=== PATIENT | male | born 1960 | race Caucasian/White ===

== ENCOUNTER 2016-11-06 08:38 | Emergency (ER) | payer BC ==
--- NOTE | 2016-11-06 09:28 | ER NURSING DOCUMENTATION ---
Nurse's Notes [facility] Name:Mega Stafford Age:56 yrs Sex:Male :1960 Arrival Date:11/06/2016 Time:08:38 Bed5 Private MD:Roger Gonsalez Diagnosis:Mouth Abscess Presentation: 11/06 08:40 Presenting complaint: Patient states: pt states he has had a sore in his moth for 10 st days and then last night started to have a fever and some highhandedness. Transition of care: Home. 08:40 Method Of Arrival: Private Vehicle st 08:53 Acuity: ELIN 3 st Triage Assessment: 08:40 General: Appears in no apparent distress, Behavior is cooperative. Pain: Complains of st pain in lower left third molar Pain currently is 7 out of 10 on a pain scale. Pain began 10 days. EENT: sore in the left lower jaw with white puss in it. . Cardiovascular: No deficits noted. Respiratory: No deficits noted. GI: No deficits noted. Historical: - Allergies: PENICILLINS; - Home Meds: 1. Naproxen Oral 2. Potassium Chloride Oral 3. Benicar oral 4. dieretic - PMHx: Hypertension; - Tetanus: unknown. - Ebola Screening: : Patient denies exposure to infectious person. Patient denies travel to an Ebola-affected area in the 21 days before illness onset. . - Social history: Smoking status: Patient uses tobacco products, current some day smoker. Patient uses alcohol occasionally. Patient/guardian denies using marijuana. Screenin:40 Infectious Disease Risk None. Abuse screen: Denies threats or abuse. Denies injuries st from another. pt feels safe at home. Nutritional screening: No deficits noted. Vital Signs: 08:40 BP 132 / 85; Pulse 89; Temp 100.4; Pulse Ox 99% ; Pain 7/10; st 09:14 Pulse Ox 92% on R/A; st ED Course: 08:40 Patient arrived in ED. ama 08:40 Roger Gonsalez MD is Private Physician. ama 08:40 Valuables Remains with patient. st 08:53 Gladys Frost RN is Primary Nurse. st 08:[address] 09:06 Elliott Barbosa MD is Attending Physician. cd 09:16 Roger Gonsalez MD is Referral Physician. cd Administered Medications: No medications were administered Outcome: 09:17 Discharge ordered by . cd 09:25 Discharged to home ambulatory. st : Condition: stable 09:25 Discharge instructions given to patient, Instructed on discharge instructions, follow up and referral plans. medication usage. 09:27 Patient [address] the ED. st 11/07 11:45 Discharge F/U Call: Spoke with: patient. Overall Care on a scale of 1-10 with 10 ma being the best care, you rate our care as: Other comments: Pt states he is feeling much better and was satisfied with care Signatures: Gladys Frost, RN RN Latisha Gray RN RN ma Daley, Chris, MD MD cd Averdick, Andrew, Reg Reg ama
--- NOTE | 2016-11-06 09:28 | ER PHYSICIAN DOCUMENTATION ---
Physician Documentation [facility] Name:Mega Stafford Age:56 yrs Sex:Male :1960 Arrival Date:11/06/2016 Time:08:38 Bed5 Private MD:Roger Gonsalez ED, Chris Disposition: 11/06 09:25 Chart complete. cd Disposition: 11/06/16 09:17 Discharged to Home/Self Care. Impression: Mouth Abscess. - Condition is Good. - Discharge Instructions: ABSCESS, Abx Only. - Prescriptions for Clindamycin HCl 300 mg Oral Capsule - take 1 capsule by ORAL route every 6 hours for 10 days; 40 capsule. - Medical Reconciliation form form. - Follow up: Roger Gonsalez MD; When: 7 - 10 days; Reason: Recheck today's complaints, Continuance of care. - Problem is new. - Symptoms are unchanged. - Notes: Take Tylenol 650mg by mouth every 6 hours for 2 - 3 days Ibuprofen 600mg by mouth every 6 hours for 2 - 3 days Drink plenty of fluids, 2 - 3 quarts water or Gatorade every day Take Clindamycin 300mg by mouth every 6 hours for 10 days HPI: 08:42 This 56 yrs old Male presents to ER via Private Vehicle with complaints of cd Mouth Problem - SORE, Fever. 08:42 The patient presents with pain, redness, swelling. The problem is located in the lower cd left third molar. Onset: The symptom(s)/episode began/occurred acutely, yesterday. Duration: The symptoms are continuous, and are steadily getting worse. Severity of symptoms: At their worst the symptoms were moderate, in the emergency department the symptoms are unchanged. Historical: - Allergies: PENICILLINS; - Home Meds: 1. Naproxen Oral 2. Potassium Chloride Oral 3. Benicar oral 4. dieretic - PMHx: Hypertension; - Tetanus: unknown. - Ebola Screening: : Patient denies exposure to infectious person. Patient denies travel to an Ebola-affected area in the 21 days before illness onset. . - Social history: Smoking status: Patient uses tobacco products, current some day smoker. Patient uses alcohol occasionally. Patient/guardian denies using marijuana. ROS: 08:42 Neck: Negative for injury, pain, stiffness and swelling. cd 08:42 Respiratory: Negative for shortness of breath, dyspnea on exertion, cough, sputum cd production, wheezing, hemoptysis and pleuritic chest pain. 08:42 Constitutional: Positive for fever, Negative for chills, poor PO intake. 08:42 ENT: Positive for dental pain, of the lower left third molar and mouth. 08:42 All other systems are negative. Exam: Head/Face: Normocephalic, atraumatic. 08:42 Neck: Trachea midline, no thyromegaly or masses palpated, and no cervical cd lymphadenopathy. Supple, full range of motion without nuchal rigidity, or vertebral point tenderness. No Meningismus. 08:42 Constitutional: The patient appears alert, awake, non-toxic, anxious. 08:42 ENT: Mouth: Gums: reddened, swollen, Dental exam: abscess, that is mild, specifically in the lower left third molar (#17), Voice: is normal. Vital Signs: 08:40 BP 132 / 85; Pulse 89; Temp 100.4; Pulse Ox 99% ; Pain 7/10; st 09:14 Pulse Ox 92% on R/A; st MDM: 09:06 Patient medically screened. cd 09:15 Data reviewed: vital signs, nurses notes, old medical records, and as a result, I will cd discharge patient, administer antibiotics. Counseling: I had a detailed discussion with the patient and/or guardian regarding: the historical points, exam findings, and any diagnostic results supporting the discharge/admit diagnosis, the need for outpatient follow up, for a recheck, with the patient's primary care provider, to return to the emergency department if symptoms worsen or persist or if there are any questions or concerns that arise at home. Dispensed Medications: No medications were administered Signatures: Gladys Frost, Elliott Gonzalez RN, MD MD cd
== END 2016-11-06 09:27 | disposition home or self-care (01) ==
LOC: ER 08:38
DX: K12.2 Cellulitis and abscess of mouth (principal); R50.9 Fever, unspecified; I10 Essential (primary) hypertension; Z79.899 Other long term (current) drug therapy; Z72.0 Tobacco use
CPT/HCPCS: 99281